=== PATIENT | female | born 1960 | race Two or more races ===

== ENCOUNTER 2022-06-29 03:14 | Emergency (ER) | payer OTHER ==
[~2022-06-29] VITALS: Ht 167.6 cm; Wt 95.3 kg
--- NOTE | 2022-06-29 03:17 | NUR ---
[email or web address], from home, c/o chest pressure radiating to back x1 hr. FOCUSING MACHINE OPERATOR took baby asp and nitro from EMS. PT A/OX4. TOLERATING R/A WELL WITH NO RESP DISTRESS. CONNECTED PT TO POX AND MONITOR. SAFETY MEASURES IN PLACE.
[2022-06-29] MEDS ORDERED: IV NS 0.9% 1,000 ML IV ONE (03:30)
[2022-06-29] MEDS ORDERED: FAMOTIDINE/PF INJ 20 MG/2 ML VIAL IV ONE ×2 (03:30→03:36)
--- NOTE | 2022-06-29 03:32 | NUR ---
LAC #18G S/L BLOOD COLLECTED AND SENT TO LAB
[2022-06-29 04:01] LABS: BASOPHILS % (AUTO) 0.4 % (0.0-2.0); HEMATOCRIT 39 % (33-45); HEMOGLOBIN 13.1 g/dL (11.5-14.8); LYMPHOCYTES # (AUTO) 2.7 K/uL (0.8-4.8); LYMPHOCYTES % (AUTO) 32.9 % (20.0-44.0); MEAN CORPUSCULAR HGB CONC 34 g/dl (31.0-36.0); MEAN CORPUSCULAR VOLUME 88 fL (82-100); MONOCYTES # (AUTO) 0.8 K/uL (0.1-1.30); MONOCYTES % (AUTO) 9.5 % (2.0-12.0); NEUTROPHILS # (AUTO) 4.6 K/uL (1.8-8.9); NEUTROPHILS % (AUTO) 56.2 % (43.0-81.0); PLATELET COUNT (AUTO) 351 K/uL (150-450); RED BLOOD CELL COUNT(AUTO) 4.45 MIL/uL (4.0-5.2); WHITE BLOOD COUNT (AUTO) 8.1 K/uL (4.3-11.0)
[2022-06-29 04:20] LABS: CALCIUM, SERUM 8.8 mg/dL (8.5-10.1); CARBON DIOXIDE 25 mmol/L (21-32); CHLORIDE 107 mmol/L (98-107); CREATININE 0.8 mg/dL (0.6-1.3); GLUCOSE 129 mg/dL (74-106); POTASSIUM 3.9 mmol/L (3.5-5.1); SODIUM SERUM 142 mmol/L (136-145); UREA NITROGEN, BLOOD 13 mg/dL (7-18)
--- NOTE | 2022-06-29 05:14 | NUR ---
THERMAL CUTTING TRACER MACHINE OPERATOR AT PT'S BEDSIDE
[2022-06-29 06:54] VITALS: BP 138/74
== END 2022-06-29 06:54 | disposition home or self-care (01) ==
LOC: ER 03:16
DX: R07.89 Other chest pain (principal); I10 Essential (primary) hypertension; F41.9 Anxiety disorder, unspecified; Z91.040 Latex allergy status
CPT/HCPCS: 99285; 96374; 71045; 96361; 93005; 85025; 80048; 36415; 84484 ×2; J3490; J7030